=== PATIENT | male | born 1950 | race Two or more races ===

== ENCOUNTER → 2024-11-24 | Outpatient (CLI) | payer MEDICAID, SELFPAY ==
--- NOTE | 2024-11-24 14:41 | XR_ITS ---
Examination: Abdomen sonogram, complete Date and time of exam: November 24, 2024 1526 hours INDICATIONS: Right flank pain beginning one month ago TECHNIQUE: Grayscale sonographic images abdomen FINDINGS: Multiple gallstones Gallbladder wall 0.3 cm Common bile duct 0.5 cm Pancreatic head appears prominent 4.9 cm Mid aorta visualized not enlarged Liver 13.8 cm irregular contour fatty infiltration Normal hepatopedal portal venous flow Patent IVC Right kidney 9.5 cm cortex 3.0 cm Left kidney 10.5 cm cortex 1.8 cm Moderate bilateral renal parenchymal scar formation Spleen 10.5 cm. Impression: Cholelithiasis Recommend CT scan abdomen pelvis post intravenous contrast follow-up to exclude pancreatic head mass
== END | disposition home or self-care (01) ==
PROVIDERS: PCP Specialist; Referring Provider Specialist; Visit Provider Specialist
DX: K80.20 Calculus of gallbladder without cholecystitis without obstruction (principal)
CPT/HCPCS: 76700

== ENCOUNTER → 2024-12-27 | Outpatient (CLI) | payer MEDICAID, SELFPAY | END | disposition home or self-care (01) | LOC: CDIM 07:59 | PROVIDERS: PCP Specialist; Referring Provider Specialist; Visit Provider Specialist | DX: Z53.8 Procedure and treatment not carried out for other reasons (principal) | CPT/HCPCS: 74176 ==

== ENCOUNTER → 2025-02-02 | Outpatient (CLI) | payer MEDICAID, SELFPAY ==
--- NOTE | 2025-02-02 08:26 | XR_ITS ---
Examination: CT abdomen with intravenous contrast CT pelvis with intravenous contrast 2-D coronal reconstructions 2-D sagittal reconstructions Date and time of exam:February 02, 2025, 0857 hours Comparison December 27, 2024 INDICATIONS: Right-sided abdominal pain beginning one week ago. History right renal calculus CTDI: vol (mGy) 17.6 DLP: (mGycm) 770 Technique: Multiple axial sections of the abdomen and pelvis have been obtained. 64 slice high-resolution scanner used. 3 mm axial sections have been obtained, post intravenous injection 60 cc [id number]-370 2-D sagittal, coronal reconstructions obtained. Low dose protocols were performed. One or more of the following dose reduction techniques were used; automated exposure control, adjustment of the mA and/or KV according to patient size, use of iterative reconstruction technique. Findings: No focal liver lesions Gallstones Gallbladder wall does not appear thickened Spleen is not enlarged No pancreatic or adrenal mass Minimal perinephric stranding No renal or ureteral calculi, no hydronephrosis Normal appendix No bowel obstruction 14 mm umbilical hernia No diverticulitis Urinary bladder wall thickening, mild of to 4 mm Transverse prostate dimension 4.7 cm Significant osteopenia IMPRESSION: Cholelithiasis, negative for cholecystitis No renal or ureteral calculi, no hydronephrosis Cystitis pattern
== END | disposition home or self-care (01) ==
LOC: CDIM 03-08 19:51
PROVIDERS: PCP Specialist; Referring Provider Specialist; Visit Provider Specialist
DX: K80.20 Calculus of gallbladder without cholecystitis without obstruction (principal)
CPT/HCPCS: 74177; A4649; Q9967

== ENCOUNTER 2025-03-29 10:14 | Inpatient (IN) | payer MEDICAID, SELFPAY ==
--- NOTE | 2025-03-27 06:00 | EKG_ITS ---
[facility] Test Date: 2025-03-27 Pat Name: JACQUI ENGEL Department: Room: - Gender: Male [employer] Supervisor: [place] : [id number] Requested By: Sami Reddy Order Number: [id number] Reading MD: Sami Reddy Measurements Intervals [place] Rate: 87 P: 57 FL: 167 QRS: 36 QRSD: 142 T: 93 QT: 394 QTc: 474 Interpretive Statements SINUS RHYTHM LEFT BUNDLE BRANCH BLOCK [120+ ms QRS DURATION, 80+ ms Q/S IN V1/V2, 85+ ms R IN I/aVL/V5/V6] Compared to ECG 03/13/2024 13:05:54 Left bundle-branch block now present Sinus tachycardia no longer present /store/S0/[id number]/[id number].pdf
[2025-03-27 07:15] VITALS: BMI 30.9
[2025-03-27 09:14] LABS: Basophils # (Auto) 0.1 Thou/mm3 (0.0-0.2); Basophils % (Auto) 1 % (0-2.5); Eosinophils # (Auto) 0.2 Thou/mm3 (0.0-0.5); Eosinophils % (Auto) 2 % (0-10); Hematocrit 54.9 % (41.0-53.0); Hemoglobin 18.8 g/dL (13.5-16.0); Immature Granulocytes Auto 0.09 Thou/mm3 (0.00-0.00); Lymphocytes # (Auto) 2.4 Thou/mm3 (1.0-4.8); Lymphocytes % (Auto) 24 % (10-50); Mean Corpuscular HGB Conc 34.2 g/dl (31.0-37.0); Mean Corpuscular Hemoglobin 29.1 pg (25.0-35.0); Mean Corpuscular Volume 85 fL (80-100); Monocytes # (Auto) 0.8 Thou/mm3 (0.0-0.8); Monocytes % (Auto) 8 % (0-12); Neutrophils # (Auto) 6.4 Thou/mm3 (1.8-7.7); Neutrophils % (Auto) 64 % (37-80); Nucleated Red Blood Cell # 0.00 Thou/mm3 (0.00-0.00); Nucleated Red Blood Cell % 0 /100 WBC (0); Platelet Count 320 Thou/mm3 (140-440); RDW Standard Deviation 41.6 fL (35.1-43.9); Red Blood Count 6.47 Miln/mm3 (4.50-5.90); White Blood Count 9.9 Thou/mm3 (3.8-10.6)
[2025-03-27 09:24] LABS: Alanine Aminotransferase 32 U/L (10-49); Albumin, Serum 4.5 gm/dL (3.4-4.8); Albumin/Globulin Ratio 1.7 (1.2-2.2); Alkaline Phosphatase 88 U/L (46-116); Anion Gap 10 (7-16); Aspartate Amino Transferase 29 U/L (0-34); BUN/Creatinine Ratio 14 Ratio (12-20); Bilirubin,Total 0.8 mg/dL (0.3-1.2); Blood Urea Nitrogen 15 mg/dL (9-23); Calcium 9.5 mg/dL (8.3-10.6); Calcium (Corrected) 9.5 mg/dL (8.5-10.1); Carbon Dioxide 25.6 mMol/L (20.0-31.0); Chloride 106 mMol/L (98-107); Creatinine (Component) 1.1 mg/dL (0.6-1.3); Estimated Creatinine Clearance 57.7 mL/min (>60); Globulin 2.6 gm/dL (2.3-3.5); Glucose 109 mg/dL (74-106); Osmolality,Calculated 284 (275-295); Potassium 4.1 mMol/L (3.4-5.1); Sodium 142 mMol/L (136-145); Total Protein 7.1 gm/dL (5.7-8.2); eGFR > 60 See Note
[2025-03-27 09:38] LABS: INR 1.0 (0.9-1.3); Prothrombin Time 11.2 Seconds (9.0-12.2)
--- NOTE | 2025-03-28 14:06 | SUR.PREOP ---
EKG reviewed with Dr Lucero.
[2025-03-29] VITALS (15 sets, daily range): BP systolic 107–139; BP diastolic 45–97; PULSE 85–119; RESP 12–19; TEMP 36.2–36.4; O2SAT 92–97; BMI 30.1; BMI 24.7
[2025-03-29] MEDS: ASCORBIC ACID 250 MG TABLET 500 MG PO (08:26)
--- NOTE | 2025-03-29 10:13 | ESOP_ITS ---
Date of Procedure 03/29/25 Pre Op Diagnosis Symptomatic cholelithiasis Post Op Diagnosis Cholelithiasis with cholecystitis Procedure Attempted laparoscopic, open cholecystectomy Findings Distended gallbladder with multiple gallstones and chronic cholecystitis. Surface of the liver was smooth without nodules or any lesions Procedure Description Patient was brought into the operating room in supine position. After administration of general endotracheal anesthesia abdomen was prepped and draped in standard surgical manner. A Veress needle was inserted through the umbilicus and pneumoperitoneum was obtained up to 15 mmHg. The Veress needle was then removed, a 5 mm infraumbilical incision was made and the 5mm trocar was inserted. Laparoscopic camera was placed. Under direct visualization a laparoscopic camera a 10 mm trocar was placed in subxiphoid and two 5 mm trocars placed in right upper quadrant. The gallbladder was identified and was noted to be moderately distended. It was retracted cephalad and laterally. Dissection started near the infundibulum of gallbladder where cystic duct and gallbladder junction clearly identified. The cystic duct was circumferentially dissected off the peritoneum and surrounding inflammatory tissue. The critical view of safety was clearly demonstrated. Cystic duct was then divided between 2 endoclips proximally and one distally. The cystic artery was similarly dissected and divided. Patient was noted to have anterior and posterior branches. 2 endoclips placed proximally and 1 distally and the cystic artery was divided. Upon dividing the cystic artery the proximal clips came off there were pulsatile bleeding from the cystic artery stump. Despite multiple maneuvers and attempts to place additional clip I was unable to clearly grasp the cystic artery stump to safely apply the clip. Fearing injury to common bile duct by blindly applying endoclips I elected to convert the procedure to open. A subcostal incision was made from medial right upper quadrant 5 mm trocar site to subxiphoid trocar site. Dissection was deepened and soft tissue and anterior abdominal fascia was divided. The rectus muscle was excised. Posterior abdominal fascia and peritoneum were opened. Instruments and trocars removed, pneumoperitoneum was evacuated. A Bookwalter retractor was placed for adequate exposure. Upon further inspection I was able to identify the bleeding from the cystic artery stump which was grasped with a right angle clamp. A suture was placed around it and it was tightened. No further bleeding was noted. The gallbladder was then from the liver bed using electrocautery and was removed. The area was copiously and thoroughly washed and irrigated, all the fluids were suctioned and the suction fluid returned clear. Hemostasis was adequate and satisfactory. A 19 Serbian Corey-Sahu drain placed at the gallbladder fossa and was brought out of the lateral 5 mm trocar site. The drain was secured with 2-0 nylon suture. The liver bed once again inspected, hemostasis was adequate and satisfactory, no bleeding or bile leak noted. Posterior abdominal fascia was closed with running 0 PDS. Wound was washed and irrigated. Anterior abdominal fascia was closed with running 0 PDS. Incisions closed with asia. Appropriate sterile dressings applied. Instruments, needles and sponge counts were all reported to be correct X2. Patient tolerated the procedure well, was extubated, breathing spontaneously and without difficulty and was transferred to postanesthesia care in stable condition. Anesthesia GETA and local Drains LEON drain x 1 Pathology / specimen Other (Gallbladder and contents) Estimated Blood Loss 200 Condition Stable Disposition PACU Surgeon Sami Reddy MD Surgical Staff Operation Date: 03/29/25 09:15 Case Staff Anesthesiologist: Harry Gandhi RN First Assistant: Cami Sarah
--- NOTE | 2025-03-29 10:15 | SUR.PHASEI ---
1015 patient arrived to recovery in bed, on oxygen 12L via oxy mask, sleeping able to arouse then drifts back to sleep, breathing unlabored, oxygen level lower 93%- anesthesia provider aware, no new order will monitor, the remainder of patients vital signs are within normal range, dressing intact to abdomen; asia, gauze- LEON drain 19F in place with drain sponge with serosanguineous fluid present in collection bulb, cover with medipore tape, report received from Dr. Gandhi and Nathaly CROCKETT
--- NOTE | 2025-03-29 10:54 | SUR.PHASEI ---
1054 patients brother updated on patients condition and patient is admitted into hospital, will call brother when he gets a medsurg room
[2025-03-29] MEDS: fentaNYL CIT INJ 50 mCg/ML AMP 2ML 25 MCG IVP (11:06)
--- NOTE | 2025-03-29 12:51 | SUR.PHASEI ---
1247 Report given to Camryn CROCKETT, patient meets discharge criteria from recovery, resting comfortably in bed, on oxygen 5L via oxy mask, breathing unlabored, vital signs stable, dressing intact; no bleeding noted, LEON drain emptied 30ml; serosanguineous fluid, eating ice chip; tolerating well, denies nausea 1251 Patient transported via bed to room 363 without incident, patient brother notified patient room number on iCreate
[2025-03-29] MEDS: ACETAMINOPHEN IVPB 1,000 MG/100 ML VIAL 250 MG IV ×2 (14:51→20:27)
[2025-03-29] MEDS: CEFOXITIN 2 GM in SODIUM CHLORIDE 0.9% (Popper) 50 ML IV ×2 (14:52→18:07)
[2025-03-29] MEDS: ZINC SULFATE 220 MG CAPSULE PO (14:52)
[2025-03-29] MEDS: HYDROcodone/APAP 5/325 TABLET 1 TAB PO (18:06)
[2025-03-29] MEDS: DOCUSATE SOD 100 MG CAPSULE PO (20:26)
[2025-03-30] VITALS (8 sets, daily range): BP systolic 109–145; BP diastolic 60–90; PULSE 80–98; RESP 17–20; TEMP 36.1–36.7; O2SAT 92–97
[2025-03-30] MEDS: CEFOXITIN 2 GM in SODIUM CHLORIDE 0.9% (Popper) 50 ML IV ×3 (00:17→11:41)
[2025-03-30] MEDS: ACETAMINOPHEN IVPB 1,000 MG/100 ML VIAL 250 MG IV ×2 (06:07→15:19)
[2025-03-30 06:11] LABS: Basophils # (Auto) 0.0 Thou/mm3 (0.0-0.2); Basophils % (Auto) 0 % (0-2.5); Eosinophils # (Auto) 0.0 Thou/mm3 (0.0-0.5); Eosinophils % (Auto) 0 % (0-10); Hematocrit 48.1 % (41.0-53.0); Hemoglobin 16.6 g/dL (13.5-16.0); Immature Granulocytes Auto 0.07 Thou/mm3 (0.00-0.00); Lymphocytes # (Auto) 1.1 Thou/mm3 (1.0-4.8); Lymphocytes % (Auto) 7 % (10-50); Mean Corpuscular HGB Conc 34.5 g/dl (31.0-37.0); Mean Corpuscular Hemoglobin 29.5 pg (25.0-35.0); Mean Corpuscular Volume 86 fL (80-100); Monocytes # (Auto) 1.5 Thou/mm3 (0.0-0.8); Monocytes % (Auto) 10 % (0-12); Neutrophils # (Auto) 13.3 Thou/mm3 (1.8-7.7); Neutrophils % (Auto) 83 % (37-80); Nucleated Red Blood Cell # 0.00 Thou/mm3 (0.00-0.00); Nucleated Red Blood Cell % 0 /100 WBC (0); Platelet Count 289 Thou/mm3 (140-440); RDW Standard Deviation 41.2 fL (35.1-43.9); Red Blood Count 5.62 Miln/mm3 (4.50-5.90); White Blood Count 16.1 Thou/mm3 (3.8-10.6)
[2025-03-30 06:28] LABS: Alanine Aminotransferase 55 U/L (10-49); Albumin, Serum 4.0 gm/dL (3.4-4.8); Albumin/Globulin Ratio 1.8 (1.2-2.2); Alkaline Phosphatase 78 U/L (46-116); Anion Gap 11 (7-16); Aspartate Amino Transferase 45 U/L (0-34); BUN/Creatinine Ratio 15 Ratio (12-20); Bilirubin,Total 1.2 mg/dL (0.3-1.2); Blood Urea Nitrogen 16 mg/dL (9-23); Calcium 8.8 mg/dL (8.3-10.6); Calcium (Corrected) 8.8 mg/dL (8.5-10.1); Carbon Dioxide 27.4 mMol/L (20.0-31.0); Chloride 101 mMol/L (98-107); Creatinine (Component) 1.1 mg/dL (0.6-1.3); Estimated Creatinine Clearance 65.6 mL/min (>60); Globulin 2.2 gm/dL (2.3-3.5); Glucose 132 mg/dL (74-106); Osmolality,Calculated 280 (275-295); Potassium 4.2 mMol/L (3.4-5.1); Sodium 139 mMol/L (136-145); Total Protein 6.2 gm/dL (5.7-8.2); eGFR > 60 See Note
[2025-03-30] MEDS: HYDROcodone/APAP 5/325 TABLET 1 TAB PO (07:50)
[2025-03-30] MEDS: ZINC SULFATE 220 MG CAPSULE PO (07:54)
[2025-03-30] MEDS: ASCORBIC ACID 250 MG TABLET 500 MG PO ×2 (07:54→20:09)
[2025-03-30] MEDS: DOCUSATE SOD 100 MG CAPSULE PO ×2 (07:54→20:09)
--- NOTE | 2025-03-30 09:36 | PC.SS ---
Jaquan Anderson is a 75 year old male admitted for LAP Zuly. SS made contact with the patient in the attempt to complete initial. Role and reason for the contact was explained to the patient. Demographic information was verified with the patient. Patient was able to verify her home address, phone number and contact information for his brother, Austin Anderson. Patient reports that she lives at home with his brother who he has listed as his primary care person [phone]. Patient denies having an advance directive in place. SS inquired about the patient being able to perform her own ADL?s at home. Patient reports that he is independent with her ADL?s. Patient reports he does not utilize any source of DME to assist with ambulation. At this time patient reports that he has no other needs. Patient reports that his brother will be able to transport her home upon discharge. PCP: John Chiu Discharge plan: Home Next of kin: , Min Carter
--- NOTE | 2025-03-30 11:00 | CHAP ---
Patient expressed gratitude for visit and prayer.
--- NOTE | 2025-03-30 12:40 | PD.SURPROG ---
Documentation for date of: 03/30/25 Subjective Subjective Narrative: Patient is seen and examined. He is complaining of incisional pain. He is tolerating clear liquids without nausea or vomiting. Exam Vital Signs Temp Pulse Resp BP Pulse Ox O2 Del Method O2 Flow Rate 97.6 F 81 18 109/60 95 Room Air 5 03/30/25 11:47 03/30/25 11:47 03/30/25 11:47 03/30/25 11:47 03/30/25 11:47 03/30/25 11:47 03/30/25 06:49 Constitutional Constitutional: no acute distress Routine Abdominal Exam Comments: Abdomen is soft and mildly distended. Incision with dressings clean, dry and intact. LEON drain in place and intact with serosanguineous drainage Assessment & Plan Assessment Additional comments: Postop day #1 status post open cholecystectomy Plan Advance diet. Patient is advised to increase ambulation PROCEDURES: Procedures Attempted laparoscopic, open cholecystectomy
--- NOTE | 2025-03-30 15:02 | PC.SS ---
SS follow up note; Advancing diet. Post op day #1. Patient will discharge home when medically cleared.
[2025-03-31] VITALS (8 sets, daily range): BP systolic 100–121; BP diastolic 69–88; PULSE 88–109; RESP 15–20; TEMP 36.3–36.8; O2SAT 90–97
[2025-03-31 06:26] LABS: Basophils # (Auto) 0.0 Thou/mm3 (0.0-0.2); Basophils % (Auto) 0 % (0-2.5); Eosinophils # (Auto) 0.1 Thou/mm3 (0.0-0.5); Eosinophils % (Auto) 0 % (0-10); Hematocrit 48.3 % (41.0-53.0); Hemoglobin 16.7 g/dL (13.5-16.0); Immature Granulocytes Auto 0.07 Thou/mm3 (0.00-0.00); Lymphocytes # (Auto) 1.8 Thou/mm3 (1.0-4.8); Lymphocytes % (Auto) 14 % (10-50); Mean Corpuscular HGB Conc 34.6 g/dl (31.0-37.0); Mean Corpuscular Hemoglobin 29.4 pg (25.0-35.0); Mean Corpuscular Volume 85 fL (80-100); Monocytes # (Auto) 1.1 Thou/mm3 (0.0-0.8); Monocytes % (Auto) 9 % (0-12); Neutrophils # (Auto) 9.9 Thou/mm3 (1.8-7.7); Neutrophils % (Auto) 76 % (37-80); Nucleated Red Blood Cell # 0.00 Thou/mm3 (0.00-0.00); Nucleated Red Blood Cell % 0 /100 WBC (0); Platelet Count 255 Thou/mm3 (140-440); RDW Standard Deviation 41.2 fL (35.1-43.9); Red Blood Count 5.68 Miln/mm3 (4.50-5.90); White Blood Count 13.0 Thou/mm3 (3.8-10.6)
[2025-03-31] MEDS: DOCUSATE SOD 100 MG CAPSULE PO ×2 (08:55→22:19)
[2025-03-31] MEDS: ASCORBIC ACID 250 MG TABLET 500 MG PO ×2 (08:55→22:19)
[2025-03-31] MEDS: ZINC SULFATE 220 MG CAPSULE PO (08:55)
[2025-03-31] MEDS: HYDROcodone/APAP 5/325 TABLET 1 TAB PO (08:56)
--- NOTE | 2025-03-31 13:44 | PD.SURPROG ---
Documentation for date of: 03/31/25 Subjective Subjective Narrative: Patient is seen and examined. He still has some right upper quadrant incisional pain. He is tolerating diet without nausea or vomiting. He is passing flatus but no bowel movement yet Exam Vital Signs Temp Pulse Resp BP Pulse Ox O2 Del Method O2 Flow Rate 97.8 F 107 H 19 107/76 93 L Room Air 2 03/31/25 12:00 03/31/25 12:03/31/25 12:03/31/25 12:03/31/25 12:03/31/25 12:03/31/25 06:20 Constitutional Constitutional: no acute distress Routine Abdominal Exam Comments: Abdomen is soft and mildly distended. Incision with dressings clean, dry and intact. LEON drain has minimal output Assessment & Plan Assessment Additional comments: Postop day #2 status post open cholecystectomy Plan Increase ambulation. Awaiting for full return of GI function PROCEDURES: Procedures Attempted laparoscopic, open cholecystectomy
[2025-03-31] MEDS: LACTULOSE SYRUP 20 GM/30 ML UDC 30 GM PO (14:01)
[2025-04-01] VITALS: BP 114/83; PULSE 116; RESP 16; TEMP 36.1; O2SAT 93
[2025-04-01 04:00] VITALS: BP 109/69; PULSE 115; RESP 16; TEMP 36.4; O2SAT 93
[2025-04-01 07:59] VITALS: BP 115/84; PULSE 104; RESP 18; TEMP 36.1; O2SAT 90
[2025-04-01] MEDS: DOCUSATE SOD 100 MG CAPSULE PO (08:53)
[2025-04-01] MEDS: ASCORBIC ACID 250 MG TABLET 500 MG PO (08:53)
[2025-04-01] MEDS: ZINC SULFATE 220 MG CAPSULE PO (08:53)
[2025-04-01 11:16] VITALS: PULSE 104; RESP 18; RESP 94
[2025-04-01 12:00] VITALS: BP 121/88; PULSE 102; RESP 17; TEMP 36.2; O2SAT 93
--- NOTE | 2025-04-01 12:32 | PD.SURDS ---
Planned Discharge Date 04/01/25 DS: Providers Provider Date of admission: 03/29/25 10:14 Primary care physician: Gonzalo Sue Admitting Provider: Sami Reddy MD Attending Provider on Admission: Sami Reddy MD Consults: 03/29/25 13:52 [facility] Referral - Knowledge Deficit Routine Comment: Positive screening for knowledge deficit needs. Attending Provider on DC: Sami Reddy MD Discharging Provider: Sami Reddy MD Diagnosis Problem List Completed Was Problem List Reviewed/Reconciled?: Yes Hospital Course Brief History: 75-year-old male with right upper quadrant abdominal pain after eating. Abdominal ultrasound and CT scan findings revealed gallstones. Patient was taken to the operating room for laparoscopic cholecystectomy. The procedure was converted to open cholecystectomy (for further details please refer to the operative report). Postoperatively the patient had incisional pain that was controlled with IV and oral pain medication. He was started on clear liquids and his diet was gradually advanced. He was eating and tolerating diet well without nausea or vomiting. He had slow return of GI function. He started passing flatus and had bowel movements. He had minimal output from the LEON drain. On the day of discharge his LEON drain was removed. He was eating and tolerating diet well without nausea or vomiting and having bowel movements. His incisions are clean, dry and intact. He has remained hemodynamically stable and being discharged home in stable condition. Status at Discharge Functional status at discharge: independent ambulation Overall status at discharge: patient is progressing back to baseline Exam Vital Signs Temp Pulse Resp BP Pulse Ox O2 Del Method O2 Flow Rate 97.0 F 104 H 18 115/84 90 L Room Air 2 04/01/25 07:59 04/01/25 11:16 04/01/25 11:16 04/01/25 07:59 04/01/25 07:59 04/01/25 07:59 03/31/25 19:10 Constitutional Constitutional: no acute distress Routine Abdominal Exam Comments: Abdomen is soft and nondistended. Incisions are clean, dry and intact Discharge Plan Plan Patient Disposition: HOME (Self Care) Prescriptions/Referrals Prescriptions/Med Rec: New ascorbic acid (vitamin C) [Vitamin C] 250 mg Tablet 500 mg PO BID Qty: 60 0RF docusate sodium 100 mg Capsule 100 mg PO BID Qty: 30 0RF zinc sulfate 50 mg zinc (220 mg) Capsule 220 mg PO QDAY Qty: 30 0RF hydrocodone-acetaminophen 5-325 mg Tablet 1 tab PO Q6HR MDD 4 PRN (Reason: Pain Scale 4-10(Mod-Sev) Qty: 20 0RF Continued celecoxib 200 mg capsule 200 mg PO Q12H omeprazole 20 mg capsule,delayed release(DR/EC) 20 mg PO DAILY Referrals: Gonzalo Mckeon [Primary Care Provider] Patient/Caregiver Discharge Instructions Discharge Activity: activity as tolerated Education Materials: Preventing Surgical Site Infections Print Language: Hungarian Activity Restrictions/Additional Instructions: May remove dressings and shower tomorrow. Wear abdominal binder at all times. Avoid lifting, straining, pulling or pushing for 6 weeks. May take over the counter laxatives if no bowel movement in 2 days[address] Follow up with Dr. Reddy in 2 weeks, call [phone] for an appointment. Continue low-fat diet for a week then advance diet as tolerated. Stand Alone Forms: Colleen Award Info., Patient Portal Info Letter Discharge Order Discharge Orders: Discharge (Routine); Ordered 04/01/25 Ordered By: Sami Reddy PROCEDURES: Procedure Date 03/29/25 Procedures Attempted laparoscopic, open cholecystectomy
--- NOTE | 2025-04-01 15:47 | PC.SS ---
HEPATOLOGIST Emmanuelle connected with patient's daughter Caitlin Simms . Caitlin was able to provide patient's sibling Quintin Anderson contact information [phone]. Quintin was contacted and stated he would be transporting patient today. He stated he would be bringing FWW for patient to have at bedside. KEIRA Webber informed patient will be transported home today by his sibling Quintin. SS informed patient is needing transportation. Patient's sibling Austin contact information is not current. SS confirmed with patient transportation need. Patient explained he can ride in [place] and family would receive him or he could be dropped off at a local gas station. SS consulted with KEIRA Webber, patient's discharge was assessed as not being a safe discharge. Patient stated his sibling's name is Quintin Anderson not, Austin. SS to submit updated contact information to patient registration.
[2025-04-01 16:00] VITALS: BP 102/73; PULSE 104; RESP 18; TEMP 36.1; O2SAT 94
== END 2025-04-01 16:45 | disposition home or self-care (01) | DRG 263 ==
LOC: S3NX 13:05
PROVIDERS: Admitting Provider Surgery; PCP Physician Assistant; Referring Provider Surgery; Visit Provider Surgery
PROC: 0FT44ZZ Resection of Gallbladder, Percutaneous Endoscopic Approach (ICD-10-PCS; CPT 47562; principal; 2025-03-29 09:00)
DX: K80.10 Calculus of gallbladder with chronic cholecystitis without obstruction (principal); K82.8 Other specified diseases of gallbladder; Z53.31 Laparoscopic surgical procedure converted to open procedure
CPT/HCPCS: 36415; 80053; 85025; 85610; 93005; A4217; A4649; J0131; J0694; J1100; J1171; J2405; J2470; J2704; J3010; J3490; J7050; A9270